=== PATIENT | female | born 1940 | race Caucasian/White ===

== ENCOUNTER 2017-02-09 10:13 | Inpatient (IN) | payer MEDICARE, OTHER ==
[~2017-02-09] VITALS: Ht 167.6 cm; Wt 40.5 kg
[2017-02-09 11:28] LABS: HEMATOCRIT 38.7 % (34.6-47.8); HEMOGLOBIN 13.1 g/dL (11.7-16.4); WHITE BLOOD COUNT 11.7 x10^3/uL (3.4-10)
[2017-02-09] MEDS ORDERED: morphine SULFATE 10 MG/ML, 1ML IVPush ONE (11:30)
[2017-02-09] MEDS ORDERED: ONDANSETRON 2MG/ML, 2ML IVPush ONE (11:30)
[2017-02-09 11:40] LABS: BLOOD UREA NITROGEN 24 mg/dL (7-18)
[2017-02-09] MEDS ORDERED: ONDANSETRON 2MG/ML, 2ML IVPush PRN (12:30)
[2017-02-09] MEDS ORDERED: DOCUSATE 100 MG CAPSULE PO PRN (12:30)
[2017-02-09] MEDS ORDERED: ACETAMINOPHEN 325 MG TABLET PO PRN (12:30)
[2017-02-09] MEDS ORDERED: LABETALOL 5MG/ML 40ML VIAL IVPush PRN (12:30)
[2017-02-09] MEDS ORDERED: BISACODYL 10 MG SUPP PR PRN (12:30)
[2017-02-09] MEDS ORDERED: POLYETHYLENE GLYCOL 17 GM PACKET PO PRN (12:30)
[2017-02-09 13:15] VITALS: BP 145/72
[2017-02-09] MEDS: morphine SULFATE 10 MG/ML, 1ML IVPush PRN ×2 (13:20→17:42)
[2017-02-09] MEDS: NS + 20MEQ KCL 1,000 ML IV SCH (15:05)
[2017-02-09 20:01] VITALS: BP 116/68
[2017-02-09] MEDS: HYDROcodone/APAP 5/325 TABLET PO PRN (21:02)
[2017-02-10] MEDS: NS + 20MEQ KCL 1,000 ML IV SCH (00:06)
[2017-02-10 05:20] VITALS: BP 107/64
[2017-02-10 06:07] LABS: HEMATOCRIT 36.2 % (34.6-47.8); HEMOGLOBIN 12.1 g/dL (11.7-16.4); WHITE BLOOD COUNT 7.1 x10^3/uL (3.4-10)
[2017-02-10 06:15] LABS: BLOOD UREA NITROGEN 17 mg/dL (7-18)
[2017-02-10 07:55] VITALS: BP 145/77
[2017-02-10] MEDS ORDERED: PROPOFOL 10 MG/ML, 20ML ONE (10:00)
[2017-02-10] MEDS ORDERED: NEOSTIGMINE 1 MG/ML, 10ML ONE (10:00)
[2017-02-10] MEDS ORDERED: CEFAZOLIN 1,000 MG ONE (10:00)
[2017-02-10] MEDS ORDERED: GLYCOPYRROLATE 0.2MG/1ML ONE (10:00)
[2017-02-10] MEDS ORDERED: ONDANSETRON 2MG/ML, 2ML ONE (10:00)
[2017-02-10] MEDS ORDERED: ROCURONIUM 10 MG/ML ONE (10:00)
[2017-02-10] MEDS ORDERED: METOPROLOL 1 MG/ML, 5ML IV PRN (10:30)
[2017-02-10] MEDS ORDERED: ACETAMINOPHEN 325 MG TABLET PO PRN (10:30)
[2017-02-10] MEDS ORDERED: EPHEDRINE 50 MG/ML, 1ML IVPush PRN (10:30)
[2017-02-10] MEDS ORDERED: HYDROmorphone 1 MG/ML, 1ML IV PRN (10:30)
[2017-02-10] MEDS ORDERED: hydrALAzine 20 MG/ML, 1ML IV PRN (10:30)
[2017-02-10] MEDS ORDERED: OXYcodone 5 MG/5 ML ORAL.SOL UDC PO PRN ×2 (10:30→13:30)
[2017-02-10] MEDS ORDERED: ONDANSETRON 2MG/ML, 2ML IVPush PRN (10:30)
[2017-02-10] MEDS ORDERED: LABETALOL 5MG/ML, 20ML IV PRN (10:30)
[2017-02-10] MEDS ORDERED: MEPERIDINE/PF 25MG/0.5ML IVPush PRN (10:30)
[2017-02-10] MEDS ORDERED: ALBUTEROL SULFATE 2.5 MG/3 ML NPPB PRN (10:30)
[2017-02-10] MEDS ORDERED: FENTANYL PF 100 MCG/2ML ONE ×2 (11:07→11:23)
[2017-02-10] MEDS ORDERED: OXYcodone 5 MG/5 ML ORAL.SOL UDC ONE (11:24)
[2017-02-10] MEDS: FENTANYL PF 100 MCG/2ML IV PRN ×3 (11:40→12:05)
[2017-02-10 12:35] VITALS: BP 112/56
[2017-02-10] MEDS ORDERED: MAGNESIUM HYDROXIDE 8%, 30ML UDC PO PRN (13:30)
[2017-02-10] MEDS ORDERED: ONDANSETRON 2MG/ML, 2ML IV PRN (13:30)
[2017-02-10] MEDS ORDERED: morphine SULFATE 10 MG/ML, 1ML IV PRN (13:30)
[2017-02-10 14:19] VITALS: BP 97/61
[2017-02-10] MEDS: KETOROLAC 30 MG/1 ML IV SCH ×2 (15:04→21:14)
[2017-02-10] MEDS: HYDROcodone/APAP 5/325 TABLET PO PRN (17:36)
[2017-02-10] MEDS: CEFAZOLIN PMX 1GM/50ML 50 ML IVPB SCH (17:36)
[2017-02-10 18:35] VITALS: BP 100/74
[2017-02-10] MEDS: DOCUSATE 100 MG CAPSULE PO SCH (21:14)
[2017-02-11 00:35] VITALS: BP 112/70
[2017-02-11] MEDS: CEFAZOLIN PMX 1GM/50ML 50 ML IVPB SCH (02:04)
[2017-02-11 03:15] VITALS: BP 105/65
[2017-02-11 05:08] LABS: HEMATOCRIT 27.6 % (34.6-47.8); HEMOGLOBIN 9.2 g/dL (11.7-16.4)
[2017-02-11] MEDS: KETOROLAC 30 MG/1 ML IV SCH (05:17)
[2017-02-11] MEDS: HYDROcodone/APAP 10/325 MG TABLET PO PRN ×2 (05:17→09:55)
[2017-02-11 07:40] VITALS: BP 108/82
[2017-02-11] MEDS ORDERED: ENOXAPARIN 40 MG/0.4 ML SQ SCH (08:00)
[2017-02-11] MEDS: DOCUSATE 100 MG CAPSULE PO SCH (09:55)
[2017-02-11] MEDS ORDERED: APIX2.5T PO (13:06)
[2017-02-11] MEDS ORDERED: HYDR-879 PO (13:07)
[2017-02-11 13:51] VITALS: BP 105/53
[2017-02-11] MEDS: HYDROcodone/APAP 5/325 TABLET PO PRN (14:41)
== END 2017-02-11 15:06 | disposition home or self-care (01) | DRG 469 ==
LOC: ED 10:48 → EDIP 11:11 → 4NOR 13:07
PROVIDERS: ADMIT Internal Medicine; ATTEND Internal Medicine
PROC: 0SRS0JZ Replacement of Left Hip Joint, Femoral Surface with Synthetic Substitute, Open Approach (ICD-10-PCS; principal; 2017-02-09)
DX: M80.052A Age-related osteoporosis with current pathological fracture, left femur, initial encounter for fracture (principal); E43 Unspecified severe protein-calorie malnutrition; E87.1 Hypo-osmolality and hyponatremia; S72.032A Displaced midcervical fracture of left femur, initial encounter for closed fracture; D72.829 Elevated white blood cell count, unspecified; R73.9 Hyperglycemia, unspecified; Z82.49 Family history of ischemic heart disease and other diseases of the circulatory system; Z98.1 Arthrodesis status; W01.0XXA Fall on same level from slipping, tripping and stumbling without subsequent striking against object, initial encounter; Y92.488 Other paved roadways as the place of occurrence of the external cause; Y93.01 Activity, walking, marching and hiking; Y99.8 Other external cause status
CPT/HCPCS: 36415; 71010; 72170; 80048; 82040; 85014; 85018; 85025; 85610; 93005; J0690; J1650; J1885; J2405; J2704; J2710; J3010; J3480; J3490; C1776; J2270

== ENCOUNTER 2018-07-16 09:23 | Inpatient (IN) | payer MEDICARE, OTHER ==
[~2018-07-16] VITALS: Ht 175.3 cm; Wt 47.4 kg
[~2018-07-16 09:23] MED LIST: APIX2.5T PO; HYDR-3622 PO
[2018-07-16] MEDS ORDERED: MORPHINE SULFATE 4 MG/ML, 1ML ONE (09:34)
--- NOTE | 2018-07-16 09:38 | NUR ---
VERBAL ORDER FROM MD: 4 MG MORPHINE IV NOW.
--- NOTE | 2018-07-16 09:38 | NUR ---
PT BIB [facility] FOR [facility]. PT TRIPPED AND FELL AT 8PM LAST NIGHT AND STAYED ON THE FLOOR. PT COMPLAINS OF LEFT KNEE PAIN. PT WAS GIVEN 50 FENTANYL. PT IS ON ELIQUIS. PT DENIES HITTING HER HEAD AND LOC. PT IS ALERT, ORIENTED, WITH NAD.
[2018-07-16] MEDS ORDERED: ONDANSETRON 2MG/ML, 2ML ONE ×2 (09:44→13:11)
--- NOTE | 2018-07-16 09:47 | NUR ---
PT MEDICATED PER ORDER. LAB AT BEDSIDE.
--- NOTE | 2018-07-16 09:48 | NUR ---
PT TAKEN TO X [facility]AY.
[2018-07-16 09:58] LABS: BASOPHILS % (AUTO) 0 % (0-1); EOSINOPHILS % (AUTO) 0 % (1-7); LYMPHOCYTES # (AUTO) 0.22 x10^3/uL (1-3.4); LYMPHOCYTES % (AUTO) 2 % (22-44); MD NO; MEAN CORPUSCULAR HEMOGLOBIN 34.8 pg (27.0-34.8); MEAN CORPUSCULAR HGB CONC 33.5 g/dL (32.4-35.8); MEAN CORPUSCULAR VOLUME 103.7 fL (80-100); MEAN PLATELET VOLUME 8.2 fL (7.4-10.4); MONOCYTES % (AUTO) 10 % (2-9); NEUTROPHILS # (AUTO) 8.68 x10^3/uL (1.8-6.8); NEUTROPHILS % (AUTO) 88 % (42-75); PLATELET COUNT 246 x10^3/uL (130-400); RED BLOOD COUNT 3.64 x10^6/uL (3.82-5.3); RED CELL DISTRIBUTION WIDTH 13.6 % (9.6-15.2)
[2018-07-16] MEDS ORDERED: ONDANSETRON 2MG/ML, 2ML IVPush PRN ×2 (10:00→11:30)
[2018-07-16] MEDS ORDERED: MORPHINE SULFATE 4 MG/ML, 1ML IVPush PRN ×2 (10:00→11:30)
[2018-07-16] MEDS ORDERED: SODIUM CHLORIDE FLUSH 10ML SYR IVF ONE (10:00)
[2018-07-16 10:03] LABS: INTERNATIONAL NORMALIZED RATIO 0.95 (0.93-1.1); PROTHROMBIN TIME 10.1 Seconds (9.6-11.5)
[2018-07-16 10:04] LABS: ANION GAP 9 mmol/L (5-15); CHLORIDE 106 mmol/L (98-107); CREATININE 0.63 mg/dL (0.55-1.02)
[2018-07-16 10:06] LABS: CREATINE KINASE, TOTAL 578 U/L (26-192)
--- NOTE | 2018-07-16 10:58 | NUR ---
PT STATED THAT SHE DOES NOT TAKE ANY MEDICATIONS. LEFT MESSAGE FOR PTS TO CALL BACK. PT LAST EAT AT 8 AM THIS MORNING. PT IS ALERT, ORIENTED, WITH NAD. PT IS CONNECTED TO THE MONITOR. CALL LIGHT WITHIN REACH.
--- NOTE | 2018-07-16 11:01 | NUR ---
AND HOSPITALIST AT BEDSIDE.
[2018-07-16] MEDS ORDERED: D5%-0.45NACL+KCL 20MEQ 1,000 ML IV SCH (11:07)
--- NOTE | 2018-07-16 11:20 | NUR ---
REPORT GIVEN TO CARMEN PERLA.
--- NOTE | 2018-07-16 11:26 | NUR ---
X RAY AT BEDSIDE.
--- NOTE | 2018-07-16 11:27 | NUR ---
EKG AT BEDSIDE.
[2018-07-16] MEDS ORDERED: TEMAZEPAM 15 MG CAPSULE PO PRN (11:30)
[2018-07-16] MEDS ORDERED: LABETALOL 5MG/ML, 20ML IVPush PRN (11:30)
[2018-07-16] MEDS: FAMOTIDINE 20 MG/2 ML IVPush SCH ×2 (11:30→20:01)
[2018-07-16] MEDS ORDERED: ENALAPRILAT 1.25 MG/ML, 2ML IVPush PRN (11:30)
[2018-07-16] MEDS ORDERED: DOCUSATE 100 MG CAPSULE PO PRN (11:30)
[2018-07-16] MEDS ORDERED: ACETAMINOPHEN 325 MG TABLET PO PRN (11:30)
[2018-07-16] MEDS ORDERED: ONDANSETRON ODT 4 MG PO PRN (11:30)
[2018-07-16 11:53] VITALS: BP 147/75
[2018-07-16] MEDS ORDERED: MIDAZOLAM 1 MG/ML, 2ML ONE (12:33)
[2018-07-16] MEDS ORDERED: SUCCINYLCHOLINE 20 MG/ML, 10ML ONE ×2 (12:33→13:11)
[2018-07-16] MEDS ORDERED: FENTANYL PF 100 MCG/2ML ONE ×2 (12:33→14:33)
[2018-07-16] MEDS ORDERED: PROPOFOL 10 MG/ML, 20ML ONE ×2 (12:33→13:11)
[2018-07-16] MEDS ORDERED: CEFAZOLIN 1,000 MG ONE ×3 (12:33→13:11)
[2018-07-16] MEDS ORDERED: OXYcodone 5 MG/5 ML ORAL.SOL UDC PO PRN (13:00)
[2018-07-16] MEDS ORDERED: HYDROmorphone 2 MG/ML, 1ML IVPush PRN ×2 (13:00→16:00)
[2018-07-16] MEDS ORDERED: hydrALAzine 20 MG/ML, 1ML IV PRN (13:00)
[2018-07-16] MEDS ORDERED: MEPERIDINE/PF 25MG/0.5ML IVPush PRN (13:00)
[2018-07-16] MEDS ORDERED: ENALAPRILAT 1.25 MG/ML, 2ML IV PRN (13:00)
[2018-07-16] MEDS ORDERED: KETOROLAC 30 MG/1 ML ONE (14:26)
[2018-07-16] MEDS ORDERED: OXYcodone 5 MG/5 ML ORAL.SOL UDC ONE (14:26)
[2018-07-16] MEDS ORDERED: KETOROLAC 30 MG/1 ML IVPush ONE (14:30)
[2018-07-16] MEDS: FENTANYL PF 100 MCG/2ML IV PRN ×3 (14:38→14:49)
[2018-07-16] MEDS ORDERED: HYDROmorphone 2 MG/ML, 1ML ONE (15:02)
[2018-07-16] MEDS ORDERED: DIPHENHYDRAMINE 25 MG CAPSULE PO PRN (16:00)
[2018-07-16] MEDS ORDERED: HYDROcodone/APAP 7.5-325MG/15ML UDC PO PRN (16:00)
[2018-07-16] MEDS ORDERED: ONDANSETRON 2MG/ML, 2ML IV PRN (16:00)
[2018-07-16 19:31] VITALS: BP 112/58
[2018-07-16] MEDS: DOCUSATE 100 MG CAPSULE PO SCH (20:00)
[2018-07-16] MEDS: OXYcodone IR 5MG TABLET PO PRN (20:01)
[2018-07-16] MEDS: SODIUM CHLORIDE FLUSH 10ML SYR IVF SCH (21:00)
[2018-07-16] MEDS: KETOROLAC 30 MG/1 ML IV SCH (22:10)
[2018-07-16] MEDS: CEFAZOLIN PMX 1GM/50ML 50 ML IVPB SCH (22:10)
[2018-07-17 01:26] VITALS: BP 96/55
[2018-07-17 01:52] VITALS: BP 105/62
[2018-07-17 05:40] LABS: ANION GAP 7 mmol/L (5-15); CALCIUM 7.9 mg/dL (8.5-10.1); CHLORIDE 105 mmol/L (98-107)
[2018-07-17 05:41] LABS: BASOPHILS % (AUTO) 0 % (0-1); EOSINOPHILS # (AUTO) 0.01 x10^3/uL (0-0.4); EOSINOPHILS % (AUTO) 0 % (1-7); LYMPHOCYTES # (AUTO) 0.41 x10^3/uL (1-3.4); LYMPHOCYTES % (AUTO) 5 % (22-44); MD NO; MEAN CORPUSCULAR HGB CONC 34.3 g/dL (32.4-35.8); MEAN PLATELET VOLUME 8.8 fL (7.4-10.4); MONOCYTES % (AUTO) 12 % (2-9); NEUTROPHILS # (AUTO) 7.37 x10^3/uL (1.8-6.8); NEUTROPHILS % (AUTO) 83 % (42-75); PLATELET COUNT 184 x10^3/uL (130-400); RED BLOOD COUNT 2.73 x10^6/uL (3.82-5.3); RED CELL DISTRIBUTION WIDTH 13.7 % (9.6-15.2)
[2018-07-17] MEDS: CEFAZOLIN PMX 1GM/50ML 50 ML IVPB SCH (05:59)
[2018-07-17] MEDS: KETOROLAC 30 MG/1 ML IV SCH ×2 (05:59→13:59)
[2018-07-17] MEDS: ASPIRIN 81 MG TABLET EC PO SCH (06:00)
[2018-07-17] MEDS: ENOXAPARIN 40 MG/0.4 ML SQ SCH (06:00)
[2018-07-17 06:07] LABS: ALANINE AMINOTRANSFERASE 23 U/L (12-78); ALBUMIN 2.9 g/dL (3.4-5.0); ALKALINE PHOSPHATASE 51 U/L (45-117); BILIRUBIN,TOTAL 0.8 mg/dL (0.2-1.0); CHOL/HDL RATIO 1.9; CHOLESTEROL, TOTAL 231 mg/dL (140-239); CREATININE 0.73 mg/dL (0.55-1.02); HDL CHOL % 52 % (28-40); HDL CHOLESTEROL (DIRECT) 120 mg/dL (40-60); TOTAL PROTEIN 5.6 g/dL (6.4-8.2); TRIGLYCERIDES 70 mg/dL (50-200); VLDL CHOLESTEROL 14 mg/dL (0-25)
[2018-07-17 06:08] LABS: LDL CHOLESTEROL,CALCULATED 97 mg/dL (54-169); LDL/HDL RATIO 0.8 (0.5-3.0)
[2018-07-17 08:01] VITALS: BP 108/64
[2018-07-17] MEDS: SODIUM CHLORIDE FLUSH 10ML SYR IVF SCH ×2 (08:13→21:00)
[2018-07-17] MEDS: DOCUSATE 100 MG CAPSULE PO SCH ×2 (08:13→21:22)
[2018-07-17] MEDS: FAMOTIDINE 20 MG/2 ML IVPush SCH ×2 (08:13→21:22)
[2018-07-17] MEDS: OXYcodone IR 5MG TABLET PO PRN (08:13)
[2018-07-17 15:12] VITALS: BP 128/66
[2018-07-17] MEDS: OXYcodone/APAP 5/325MG TABLET PO PRN (17:43)
[2018-07-17 19:04] VITALS: BP 112/64
[2018-07-17 21:31] VITALS: BP 114/66
[2018-07-18 02:45] VITALS: BP 109/66
[2018-07-18] MEDS: ASPIRIN 81 MG TABLET EC PO SCH (05:59)
[2018-07-18] MEDS: ENOXAPARIN 40 MG/0.4 ML SQ SCH (05:59)
[2018-07-18 06:41] VITALS: BP 115/61
[2018-07-18] MEDS: DOCUSATE 100 MG CAPSULE PO SCH ×2 (08:39→20:09)
[2018-07-18] MEDS: SODIUM CHLORIDE FLUSH 10ML SYR IVF SCH ×2 (08:39→20:52)
[2018-07-18] MEDS: FAMOTIDINE 20 MG/2 ML IVPush SCH ×2 (08:39→20:09)
[2018-07-18 13:16] VITALS: BP 121/65
[2018-07-18] MEDS: OXYcodone/APAP 5/325MG TABLET PO PRN ×2 (13:19→17:20)
[2018-07-18 20:03] VITALS: BP 103/52
[2018-07-19 00:20] LABS: CULTURE INDICATED? NO; MICROSCOPIC NOT IND
[2018-07-19 02:05] VITALS: BP 116/59
[2018-07-19] MEDS: ASPIRIN 81 MG TABLET EC PO SCH (06:16)
[2018-07-19] MEDS: ENOXAPARIN 40 MG/0.4 ML SQ SCH (06:16)
[2018-07-19 07:15] VITALS: BP 109/63
[2018-07-19] MEDS: FAMOTIDINE 20 MG/2 ML IVPush SCH (09:00)
[2018-07-19] MEDS: DOCUSATE 100 MG CAPSULE PO SCH (09:11)
[2018-07-19] MEDS: SODIUM CHLORIDE FLUSH 10ML SYR IVF SCH (09:13)
[2018-07-19 13:44] VITALS: BP 116/84
[2018-07-19] MEDS ORDERED: ACET325T14 PO (14:28)
[2018-07-19] MEDS ORDERED: ASPI-650 PO (14:28)
[2018-07-19 15:20] VITALS: BP 102/59
== END 2018-07-19 16:50 | disposition home or self-care (01) | DRG 480 ==
LOC: ED 10:38 → 4NOR 11:07 → ED 11:45 → 4NOR 07-17 15:19 → DCLOUNGE 07-19 16:40
PROVIDERS: ADMIT Internal Medicine; ATTEND Internal Medicine
PROC: 0QSC04Z Reposition Left Lower Femur with Internal Fixation Device, Open Approach (ICD-10-PCS; principal; 2018-07-16 13:00)
DX: S72.402A Unspecified fracture of lower end of left femur, initial encounter for closed fracture (principal); E43 Unspecified severe protein-calorie malnutrition; M97.02XA Periprosthetic fracture around internal prosthetic left hip joint, initial encounter; W01.0XXA Fall on same level from slipping, tripping and stumbling without subsequent striking against object, initial encounter; D75.89 Other specified diseases of blood and blood-forming organs; Z96.642 Presence of left artificial hip joint; M19.90 Unspecified osteoarthritis, unspecified site; Y93.01 Activity, walking, marching and hiking; I10 Essential (primary) hypertension; Y99.8 Other external cause status; Y92.030 Kitchen in apartment as the place of occurrence of the external cause; Z98.1 Arthrodesis status
CPT/HCPCS: 36415; 71045; 76000; 80048; 80053; 80061; 81003; 82040; 82550; 82607; 83735; 84100; 84443; 85025; 85610; 85730; 93005; 96374; 96375; C1713; G0378; J0690; J1170; J1650; J1885; J2250; J2405; J2704; J3010; J0330; J3480; J3490